=== PATIENT | female | born 1945 | race Caucasian/White ===

== ENCOUNTER 2017-07-14 12:05 | Emergency (ER) | payer MEDICARE ==
[2017-07-14 12:28] VITALS: BP 189/83; PULSE 59; RESP 18; TEMP 97.7
--- NOTE | 2017-07-14 12:51 | ED ---
Lower Extremity Injury HPI - General Chief Complaint: Extremity Injury, Lower Stated Complaint: Left Foot Injury Time Seen by Provider: 07/14/17 12:41 Source: patient, RN notes reviewed Mode of arrival: wheelchair Limitations: no limitations - History of Present Illness Initial Comments: This is a 72-year-old female who presents to the emergency department with chief complaint of left heel pain. Patient states that in May she sustained a stress fracture to her second metatarsal on her left foot. She states that she is from [place] and saw an orthopedic doctor there. She states that she is visiting [place] for a . She states that she has been wearing a walking boot since May. She states that on her left heel began feeling achy. She states that the pain has progressively worsened over the weekend to the point where she is no longer able to walk very far without experiencing pain. She denies any specific injuries, trauma or falls. Denies calf tenderness. Denies fever, chills, chest pain, shortness of breath, abdominal pain, nausea or vomiting, constipation or diarrhea, dysuria or hematuria, numbness or tingling, headache or vision changes. - Related Data Home Medications Medication Instructions Recorded Confirmed Lisinopril [Zestril] 20 mg PO DAILY 07/14/17 07/14/17 Simvastatin [Zocor] 40 mg PO HS 07/14/17 07/14/17 Sotalol [Betapace] 80 mg PO BID 07/14/17 07/14/17 metFORMIN HCL [Glucophage] 500 mg PO BID 07/14/17 07/14/17 Previous Rx's Medication Instructions Recorded HYDROcodone/APAP 5-325MG [[place] 5] 1 each PO Q6HR PRN #12 tab 07/14/17 Ibuprofen 600 mg PO Q6HR #15 tablet 07/14/17 Allergies Allergy/AdvReac Type Severity Reaction Status Date / Time No Known Allergies Allergy Verified 07/14/17 12:51 Review of Systems ROS Statement: Those systems with pertinent positive or pertinent negative responses have been documented in the HPI. ROS Other: All systems not noted in ROS Statement are negative. Past Medical History Past Medical History: Diabetes Mellitus, Hyperlipidemia, Hypertension History of Any Multi-Drug Resistant Organisms: None Reported Past Surgical History: Section Past Psychological History: No Psychological Hx Reported Smoking Status: Never smoker Past Alcohol Use History: Rare Past Drug Use History: None Reported General Exam - General Exam Comments Initial Comments: General: Awake and alert, well-developed; in no apparent distress. HEENT: Head atraumatic, normocephalic. Pupils are equal, round and reactive to light. Extraocular movements intact. Oropharynx moist without erythema or exudate. Neck: Supple. Normal ROM. Cardiovascular: Regular rate and rhythm. No murmurs, rubs or gallops. Chest symmetrical. Respiratory: Lungs clear to auscultation bilaterally. No wheezes, rales or rhonchi. Normal respiratory effort with no use of accessory muscles. Musculoskeletal: Normal range of motion of the left ankle. There is point tenderness at the insertion of Achilles tendon on the calcaneus. No swelling, erythema or contusions noted. Sensation is intact. Pedal pulses are 2+ equal and palpable bilaterally. Negative Campbell test. Skin: [place], warm and dry without rashes or lesions. Neurological: Alert and oriented x3. CN II-XII grossly intact. Speech is fluent and answers are appropriate. No focal neuro deficits. Psychiatric: Normal mood and affect. No overt signs of depression or anxiety noted. Limitations: no limitations Course Vital Signs 07/14/17 12:24 Temperature 97.7 F Pulse Rate 59 L Respiratory 18 Rate Blood Pressure 189/83 O2 Sat by Pulse 95 Oximetry Medical Decision Making - Medical Decision Making This is a 72-year-old female who presents to the emergency department with chief complaint of left heel pain. Patient has been walking with a walking boot since breaking her left foot in May. She complains of heel pain that started this past and has progressively worsened. X-ray did reveal an Achilles enthesophyte as well as mild arthropathy. Patient will be given Ultram for pain relief. Also recommended rest and ice. She is to follow-up with her orthopedic doctor when she returns home to [place]. She is also provided with an orthopedic follow-up here if she so chooses. Patient is in no acute distress and will be discharged home. She is in agreement with plan and voices understanding. All questions were answered. - Radiology Data Radiology results: report reviewed X-ray left ankle and left calcaneus impression: 1. Diffuse moderate lower extremity edema with no acute fracture or dislocation in the left ankle. 2. Moderate plantar and Achilles enthesophyte/heel spurs. 3. Mild hindfoot arthropathy. Disposition Clinical Impression: Achilles tendinitis Disposition: HOME SELF-CARE Condition: Good Instructions: Achilles Tendinitis (ED) Additional Instructions: Please follow-up with orthopedics here in town or when you return home. Please rest and ice.Please take medications as prescribed. Please follow up with primary care provider within 1-2 days. Return to emergency department if symptoms should worsen or any concerns arise. Prescriptions: HYDROcodone/APAP 5-325MG [[place] 5] 1 each PO Q6HR PRN #12 tab PRN Reason: Pain Ibuprofen 600 mg PO Q6HR #15 tablet Referrals: Nonstaff,Physician [Primary Care Provider] - 1-2 days Landon España DO [Doctor of Osteopathic Medicine] - 1-2 days Time of Disposition: 13:46
--- NOTE | 2017-07-14 13:13 | XR ---
EXAMINATION TYPE: XR ankle complete LT, XR calcaneus 2V LT DATE OF EXAM: 07/14/2017 CLINICAL HISTORY: Left ankle pain. Injury 2 months ago. No new injury. TECHNIQUE: Frontal, lateral and oblique images of the left ankle are obtained. 2 views of the calcan eus were also obtained. COMPARISON: None. FINDINGS: There is no acute fracture/dislocation evident in the left ankle. The ankle mortise appea rs within normal limits. There is diffuse overlying moderate soft tissue swelling of the entirety of the visualized left lower extremity. Calcaneus is intact. Boehler's angle is within normal limits. Mo derate Achilles and plantar enthesophytes are seen. Mild hindfoot arthropathy is seen as proliferativ e osseous changes. IMPRESSION: 1. Diffuse moderate lower extremity edema with no acute fracture or dislocation in the left ankle. 2. Moderate plantar and Achilles enthesophyte/heel spurs. 3. Mild hindfoot arthropathy.
== END 2017-07-14 14:19 | disposition home or self-care (01) ==
LOC: EC 12:05
DX: M76.62 Achilles tendinitis, left leg (principal); E11.9 Type 2 diabetes mellitus without complications; E78.5 Hyperlipidemia, unspecified; I10 Essential (primary) hypertension; Z79.84 Long term (current) use of oral hypoglycemic drugs; Z79.899 Other long term (current) drug therapy
CPT/HCPCS: 99283